=== PATIENT | male | born 1970 | race African-American/Black ===

== ENCOUNTER 2021-10-09 06:34 | Emergency (ER) | payer SELFPAY ==
[~2021-10-09] VITALS: Ht 172.7 cm; Wt 63.5 kg
[2021-10-09 06:48] VITALS: BP 104/59
--- NOTE | 2021-10-09 06:56 | NUR ---
PT TAKEN TO ER BED 04
--- NOTE | 2021-10-09 07:17 | NUR ---
Dr. Perez at bedside evaluating patient.
--- NOTE | 2021-10-09 07:22 | NUR ---
Patient does not wish to proceed with medical care recommended by Dr. Perez. Patient given information related to possible complications, up to and including , which could occur as a result of leaving hospital at this time. Patient verbalizes understanding of risks involved leaving against medical advice. Patient has signed AMA form.
== END 2021-10-09 07:22 | disposition left against medical advice (07) ==
LOC: MED 06:34
DX: K40.90 Unilateral inguinal hernia, without obstruction or gangrene, not specified as recurrent (principal); B20 Human immunodeficiency virus [HIV] disease; Z00.01 Encounter for general adult medical examination with abnormal findings; Z88.0 Allergy status to penicillin; Z88.2 Allergy status to sulfonamides
CPT/HCPCS: 99281